=== PATIENT | male | born 1970 | race Caucasian/White ===

== ENCOUNTER 2018-09-07 16:39 | Emergency (ER) | payer SELFPAY ==
[2018-09-07 16:58] VITALS: TEMP 100.2
[2018-09-07] MEDS ORDERED: HYDROcodone 7.5MG/APAP 325MG 1 EA TAB PO ONE (17:14)
--- NOTE | 2018-09-07 17:30 | RAD ---
EXAM DESCRIPTION: KUB CLINICAL HISTORY: small hematuria COMPARISON: None Available. TECHNIQUE: KUB FINDINGS: The abdominal bowel gas pattern is normal. No organomegaly is seen. A calcification is observed along the course of the proximal right ureter measuring 2.7 mm in diameter. The psoas margins are intact. IMPRESSION: A 2.7 mm diameter calculus is seen along the course of the proximal right ureter at the level of the transverse process of L3. Electronically signed by: Leonard Rodriguez MD 09/07/2018 5:26 PM CDT
[2018-09-07] MEDS ORDERED: KETOROLAC TROMETHAMINE INJ 30 MG/ML VIAL IM ONE (17:35)
[2018-09-07] MEDS ORDERED: TAMSULOSIN 0.4 MG CAP PO ONE (17:35)
[2018-09-07] MEDS ORDERED: levoFLOXacin 500 MG TAB PO ONE (17:39)
[2018-09-07] MEDS ORDERED: AMOXICILLIN & POT CLAVULANATE 875 MG TAB PO ONE (17:40)
--- NOTE | 2018-09-07 17:40 | ED.PDOC ---
History of Present Illness - General Chief Complaint: Problem Stated Complaint: blood in urine Time Seen by Provider: 09/07/18 17:08 Source: patient Exam Limitations: no limitations - History of Present Illness Initial Comments: the patient's a 48-year-old male presenting to the emergency room secondary to some mild hematuria and dysuria starting this morning. He did have a little bit of mild right sided flank discomfort earlier in the day but none currently. No nausea or vomiting. He does have very poor dentition. He does have significant gingivitis. The patient does have some mental developmental delay. He has appropriate alert and in his baseline state in that regard. Severity: mild Improving Factors: nothing Worsening Factors: nothing Associated Symptoms: denies symptoms Allergies/Adverse Reactions: Allergies NO KNOWN ALLERGY Allergy (Verified 09/07/18 16:58) Home Medications: Ambulatory Orders Amoxicillin & Pot Clavulanate [Augmentin Tab] 875 mg PO BID #14 tab 09/07/18 Tamsulosin HCl [Flomax] 0.4 mg PO DAILY #7 cap 09/07/18 Review of Systems - Review of Systems Constitutional: States: no symptoms reported EENTM: States: no symptoms reported, see HPI - poor dentition Respiratory: States: no symptoms reported Cardiology: States: no symptoms reported Gastrointestinal/Abdominal: States: see HPI Genitourinary: States: dysuria, hematuria Musculoskeletal: States: no symptoms reported Skin: States: no symptoms reported Neurological: States: no symptoms reported Endocrine: States: no symptoms reported All other Systems: No Change from Baseline Past Medical History (General) - Patient Medical History Hx Seizures: Yes - Epilepsy Hx Stroke: No Hx Congestive Heart Failure: No Hx Diabetes: No Surgical History: no surgical history - Vaccination History Hx Influenza Vaccination: No - Social History Hx Tobacco Use: No Family Medical History - Family History Father Family History: Unknown Living Status: Still Living Physical Exam - Physical Exam General Appearance: Alert, Comfortable, No apparent distress Eye Exam: bilateral normal Ears, Nose, Throat: hearing grossly normal, other - boo poor dentition with significant gingivitis Neck: non-tender, supple Respiratory: lungs clear, normal breath sounds, no respiratory distress, no accessory muscle use Cardiovascular/Chest: normal peripheral pulses, regular rate, rhythm, no edema Peripheral Pulses: radial,right: 2+, radial,left: 2+, dorsalis pedis,right: 2+, dorsalis pedis,left: 2+ Gastrointestinal/Abdominal: non tender, soft Rectal Exam: deferred Back Exam: no CVA tenderness Extremity: normal range of motion, non-tender, normal inspection, normal capillary refill Neurologic: staff nurse anesthetist II-XII nml as tested, alert, normal mood/affect, oriented x 3 Skin Exam: normal color Comments: Vital Signs (72 hours) 09/07/18 16:55 Temperature 100.2 F H Pulse Rate [ 104 H Right Brachial] Respiratory 20 Rate Blood Pressure 172/100 [Right Arm] O2 Sat by Pulse 97 Oximetry Progress - Progress Progress: 09/07/18 17:41 the patient's a 48-year-old male presenting to the emergency room secondary to hematuria. He does have mild hematuria and does have a stone in the right proximal ureter that is likely the source. He is going to be placed on Flomax for this daily for the next week and needs to increase his fluid intake significantly. He needs to have another urine rechecked with his primary care doctor in 1 week as well. Additionally he does have a very low-grade fever which is likely due to dental infection. For this I'm going to place the patient on Augmentin for 1 week. He does have a moderately elevated blood pressure here and this does need to be followed as an outpatient with his primary care doctor to make sure that this resolves with resolution of above issues. He is asymptomatic from it at this point. ER warnings were given. - Results/Orders Results/Orders: Laboratory Tests 09/07/18 17:00 Urine Color Yellow Urine Appearance Clear Urine pH 8.5 H Ur Specific [place] 1.020 Urine Protein 30 Urine Glucose (UA) Negative Urine Ketones 15 H Urine Blood Large H Urine Nitrite Negative Urine Bilirubin Small H Urine Urobilinogen 4.0 H Ur Leukocyte Esterase Negative Urine RBC 20-30 H Urine WBC 0 Ur Epithelial Cells 0 Urine Bacteria 0 Urine Mucus Small the patient has a 2.7 cm stone in the right proximal ureter. Departure - Departure Clinical Impression: Ureterolithiasis, Dental infection Hypertension Qualifiers: Hypertension type: unspecified Qualified Code(s): I10 - Essential (primary) hypertension Disposition: Discharge to Home or Self Care Condition: Fair Departure Forms: ED Discharge - Pt. Copy, Patient Portal Self Enrollment Instructions: DI for Kidney Stones, Dental Pain (DC), High Blood Pressure (DC) Diet: low salt diet Activity: increase activity as tolerated Prescriptions: Amoxicillin & Pot Clavulanate [Augmentin Tab] 875 mg PO BID #14 tab Tamsulosin HCl [Flomax] 0.4 mg PO DAILY #7 cap Home Medications: Ambulatory Orders Amoxicillin & Pot Clavulanate [Augmentin Tab] 875 mg PO BID #14 tab 09/07/18 Tamsulosin HCl [Flomax] 0.4 mg PO DAILY #7 cap 09/07/18 Additional Instructions: the patient's a 48-year-old male presenting to the emergency room secondary to hematuria. He does have mild hematuria and does have a stone in the right proximal ureter that is likely the source. He is going to be placed on Flomax for this daily for the next week and needs to increase his fluid intake significantly. He needs to have another urine rechecked with his primary care doctor in 1 week as well. Additionally he does have a very low-grade fever which is likely due to dental infection. For this I'm going to place the patient on Augmentin for 1 week. He does have a moderately elevated blood pressure here and this does need to be followed as an outpatient with his primary care doctor to make sure that this resolves with resolution of above issues. He is asymptomatic from it at this point. ER warnings were given.
[2018-09-07 18:13] VITALS: BP 170/99; O2SAT 96
== END 2018-09-07 18:13 | disposition home or self-care (01) ==
LOC: ER 16:39
DX: N20.1 Calculus of ureter (principal); K04.7 Periapical abscess without sinus; I10 Essential (primary) hypertension; K05.10 Chronic gingivitis, plaque induced; G40.909 Epilepsy, unspecified, not intractable, without status epilepticus; F89 Unspecified disorder of psychological development
CPT/HCPCS: 74018; 81001; J1885